=== PATIENT | female | born 1980 | race African-American/Black ===

== ENCOUNTER 2016-04-26 04:55 | Observation (INO) | payer MEDICAID, OTHER ==
[~2016-04-26] VITALS: Ht 162.6 cm; Wt 66.0 kg
[~2016-04-26 04:55] MED LIST: CYCL-36 PO; [UNRECOGNIZED DRUG - CODE] PO
[2016-04-26 04:58] VITALS: BP 151/95; PULSE 122; RESP 18; TEMP 98.7; O2SAT 100
--- NOTE | 2016-04-26 05:22 | PD ---
HPI Chief Complaint: Pain: Acute or Chronic Time Seen by Provider: 05:10 Travel History International Travel<30 days: No Contact w/Intl Traveler<30days: No Traveled to known affect area: No History of Present Illness HPI This is a 35-year-old female who reports a history of endometriosis. She presents for evaluation of left ankle pain. Symptoms started several hours prior to arrival. She describes it as a throbbing pain on the medial and lateral aspect of the left ankle which is constant but worse with movement. She does not recall any specific injury. She denies any fevers, chills, IV drug abuse. She denies any left calf or thigh pain. She denies any left foot pain. Denies any history of gouty arthritis, rheumatoid arthritis. She denies any pelvic pain, vaginal discharge, history of chlamydia or gonorrhea. She has not used any medication for symptom relief. She has no other complaints at this time. PFSH Past Medical History Anemia: Yes Anxiety: Yes Diminished Hearing: No Reproductive: Yes (ENDOMETRIOSIS) Migraines: Yes : 2 Ovarian Cysts: Yes (PELVIC LAPOROSCOPY AND D/C) Tubal Ligation: Yes Past Surgical History Section: Yes (X 2) Gynecologic Surgery: Yes (D AND C , LAPAOSCOPY X 2 C SECTION ) Other Surgery: Yes Social History Alcohol Use: No Tobacco Use: Yes (1/2 PPD) Substance Use: No Allergies-Medications (Allergen,Severity, Reaction): Coded Allergies: Compazine (Verified Allergy, Severe, SOB, 04/26/16) Darvocet-N 100 (Verified Allergy, Severe, HIVES, SWELLING, 04/26/16) Flagyl (Verified Allergy, Severe, Hives, 04/26/16) Imitrex (Verified Allergy, Severe, HIVES, SWELLING, 04/26/16) Levaquin (Verified Allergy, Severe, HIVES, SWELLING, 04/26/16) Macrobid (Verified Allergy, Severe, SOB, HIVES, 04/26/16) Morphine (Verified Allergy, Severe, HIVES,SOB,SWELLING, 04/26/16) Sulfa (Verified Allergy, Severe, HIVE, SWELLING, 04/26/16) Toradol (Verified Allergy, Severe, HIVES, SWELLING, 04/26/16) Tramadol (Verified Allergy, Severe, HIVES, SWELLING, 04/26/16) Reported Meds & Prescriptions Reported Meds & Active Scripts Active Reported Flexeril (Cyclobenzaprine HCl) 10 Mg Tab 10 Mg PO TID Xanax (Alprazolam) 2 Mg Tab 2 Mg PO Q6HR PRN Review of Systems Except as stated in HPI: all other systems reviewed are Neg Physical Exam Narrative GENERAL: This is a well-developed well-nourished female who appears to be in a significant amount of pain. SKIN: Warm and dry. HEAD: Atraumatic. Normocephalic. EYES: Pupils equal and round. No scleral icterus. No injection or drainage. ENT: No nasal bleeding or discharge. Mucous membranes pink and moist. NECK: Trachea midline. No JVD. CARDIOVASCULAR: Regular rate and rhythm. No murmur appreciated. RESPIRATORY: No accessory muscle use. Clear to auscultation. Breath sounds equal bilaterally. GASTROINTESTINAL: Abdomen soft, non-tender, nondistended. Hepatic and splenic margins not palpable. MUSCULOSKELETAL: No obvious deformities. There is non-focal mild soft tissue swelling on the medial aspect and lateral aspect of the left ankle. The left ankle joint is not warm or erythematous. There are no puncture wounds. There is no induration or fluctuance of the skin. There is generalized tenderness to palpation to the medial and lateral aspect of the left ankle. There is pain with passive and active range of motion of the left ankle. The Achilles tendon is intact. There is no lower extremity pitting edema. There is no tenderness to palpation to the left foot. 2+ dorsalis pedis and posterior tibial pulses. NEUROLOGICAL: Awake and alert. No obvious cranial nerve deficits. Motor grossly within normal limits. Normal speech. Data Data Last Documented VS Vital Signs Date Time Temp Pulse Resp B/P Pulse Ox O2 Delivery O2 Flow Rate FiO2 04/26/16 04:58 98.7 122 18 151/95 100 Room Air Orders Ankle, Complete ([id number]) (04/26/16 ) Acetaminophen (Tylenol) (04/26/16 05:30) Complete Blood Count With Diff (04/26/16 05:45) Basic Metabolic Panel (Bmp) (04/26/16 05:45) Act Partial Throm Time (Ptt) (04/26/16 05:45) Prothrombin Time / Inr (Pt) (04/26/16 05:45) C-Reactive Protein (Crp) (04/26/16 05:45) Westergren Sedimentation Rate (04/26/16 05:45) Lactic Acid (04/26/16 05:45) Hydromorphone Pf Inj (Dilaudid Pf Inj) (04/26/16 05:45) Sodium Chlor 0.9% 1000 Ml Inj (Ns 1000 M (04/26/16 05:47) Ct Ankle W Iv Contrast (04/26/16 ) Iohexol 350 Inj (Omnipaque 350 Inj) (04/26/16 06:25) Blood Culture (04/26/16 06:52) Drug Screen, Random Urine (04/26/16 06:52) Ed Urine Pregnancytest Poc (04/26/16 06:52) Hydromorphone Pf Inj (Dilaudid Pf Inj) (04/26/16 07:00) Admit Order (Ed Use Only) (04/26/16 07:23) Labs Laboratory Tests Test 04/26/16 04/26/16 06:00 07:25 White Blood Count 10.2 TH/MM3 Red Blood Count 4.79 MIL/MM3 Hemoglobin 13.6 GM/DL Hematocrit 40.0 % Mean Corpuscular Volume 83.6 FL Mean Corpuscular Hemoglobin 28.4 PG Mean Corpuscular Hemoglobin 33.9 % Concent Red Cell Distribution Width 15.8 % Platelet Count 384 TH/MM3 Mean Platelet Volume 7.3 FL Neutrophils (%) (Auto) 52.3 % Lymphocytes (%) (Auto) 36.4 % Monocytes (%) (Auto) 7.3 % Eosinophils (%) (Auto) 3.6 % Basophils (%) (Auto) 0.4 % Neutrophils # (Auto) 5.3 TH/MM3 Lymphocytes # (Auto) 3.7 TH/MM3 Monocytes # (Auto) 0.7 TH/MM3 Eosinophils # (Auto) 0.4 TH/MM3 Basophils # (Auto) 0.0 TH/MM3 CBC Comment DIFF FINAL Differential Comment Erythrocyte Sedimentation Rate 38 mm/hr Prothrombin Time 11.1 SEC Prothromb Time International 1.0 RATIO Ratio Activated Partial 34.5 SEC Thromboplast Time Sodium Level 135 MEQ/L Potassium Level 3.4 MEQ/L Chloride Level 101 MEQ/L Carbon Dioxide Level 25.4 MEQ/L Anion Gap 9 MEQ/L Blood Urea Nitrogen 9 MG/DL Creatinine 0.61 MG/DL Estimat Glomerular Filtration 137 ML/MIN Rate Random Glucose 91 MG/DL Lactic Acid Level 1.4 mmol/L Calcium Level 9.3 MG/DL C-Reactive Protein 8.09 MG/DL Urine Opiates Screen NEG Urine Barbiturates Screen NEG Urine Amphetamines Screen NEG Urine Benzodiazepines Screen NEG Urine Cocaine Screen POS Urine Cannabinoids Screen NEG MDM Medical Decision Making Medical Screen Exam Complete: Yes Emergency Medical Condition: Yes Medical Record Reviewed: Yes Interpretation(s) CT ankle with contrast CONCLUSION: Focal localized subcutaneous soft tissue swelling about the medial aspect of the ankle. No drainable fluid collections are seen. CBC unremarkable CRP 8.09 Potassium 3.4 Lactic acid 1.4 Differential Diagnosis Inflammatory arthritis, gouty arthritis, septic arthritis, gonococcal septic arthritis, sprain, fracture, DVT, cellulitis Narrative Course 35-year-old female presents with several hours of pain to the medial and lateral left ankle. On examination there is nonspecific soft tissue swelling around the medial and lateral aspect left ankle, pain with active and passive range of motion of the left ankle. There is unclear etiology for this patient' s pain as she does not recall any specific mechanism of injury. She is tachycardic. Plan is for basic lab work, x-ray. The patient was given Dilaudid and Tylenol for pain control. The patient was examined with Dr. Freeman who agrees with plan of care and recommends a CT of the ankle joint with contrast as well. 0655: The patient's lab work and imaging studies have been reviewed. Her lab results for a CRP of 8.09. Her CT the ankle reveals focal localized subcutaneous soft tissue swelling about the medial aspect of the left ankle, no joint effusion, no bony distraction. Her white count is normal. Her lactic acid is normal. Upon reexamination the patient continues to have severe intractable left ankle pain. Therefore the patient will be admitted for intractable ankle pain and further workup. Diagnosis Primary Impression: Left ankle pain Qualified Code: M25.572 - Acute left ankle pain Admitting Information Admitting Physician Requests: Isaiah Musa Apr 26, 2016 05:22
[2016-04-26] MEDS ORDERED: ACETAMINOPHEN 500 MG CPLT PO ONE (05:30)
[2016-04-26] MEDS ORDERED: HYDROmorphone HCL PF 1 MG/ML VIAL IV PUSH ONE ×2 (05:45→07:00)
[2016-04-26] MEDS ORDERED: SODIUM CHLOR 0.9% 1000 ML INJ 1,000 ML IV SCH (05:47)
--- NOTE | 2016-04-26 05:52 | RADRPT ---
EXAM DATE/TIME: 04/26/2016 05:34 [facility] COMPARISON: ANKLE LEFT COMPLETE ([id number]), December 13, 2005, 19:38. INDICATIONS : Non traumatic left ankle pain. MEDICAL HISTORY : None. SURGICAL HISTORY : None. ENCOUNTER: Initial ACUITY: 1 day PAIN SCORE: 10/10 LOCATION: Left ankle FINDINGS: There is mild soft tissue swelling about the medial aspect of the ankle. No fracture seen. There is minimal widening of the lateral ankle mortise, but configuration is unchanged from prior examination in 2005. No radiopaque foreign body is seen. CONCLUSION: Mild medial soft tissue swelling. The osseous structures are grossly intact. Jorge Mckeon MD on April 26, 2016 at 5:49 Board Certified Radiologist. This report was verified electronically.
[2016-04-26 06:22] LABS: APTT (PATIENT) 34.5 SEC (24.3-30.1); PROTHROMBIN TIME - PATIENT 11.1 SEC (9.8-11.6)
[2016-04-26] MEDS ORDERED: IOHEXOL 350 MG/ML 10 ML VIAL (for RAD DIAG) IV ONE (06:25)
[2016-04-26 06:33] LABS: AUTOMATED NEUTROPHIL # 5.3 TH/MM3 (1.8-7.7); BASOPHIL % 0.4 % (0.0-2.0); EOSINOPHIL # 0.4 TH/MM3 (0-0.4); EOSINOPHIL % 3.6 % (0.0-4.0); HEMO FLAGS DIFF FINAL; LYMPH % 36.4 % (9.0-44.0); LYMPHOCYTE # 3.7 TH/MM3 (1.0-4.8); MEAN CELL VOLUME 83.6 FL (80.0-100.0); MEAN CORPUSCULAR HEMOGLOBIN 28.4 PG (27.0-34.0); MEAN CORPUSCULAR HGB CONC 33.9 % (32.0-36.0); MONO % 7.3 % (0.0-8.0); NEUT % 52.3 % (16.0-70.0); PLATELET COUNT 384 TH/MM3 (150-450); RED BLOOD COUNT 4.79 MIL/MM3 (4.00-5.30); RED CELL DISTRIBUTION WIDTH 15.8 % (11.6-17.2); WHITE BLOOD COUNT 10.2 TH/MM3 (4.0-11.0)
--- NOTE | 2016-04-26 06:38 | RADRPT ---
EXAM DATE/TIME: 04/26/2016 06:21 [facility] COMPARISON: No previous studies available for comparison. INDICATIONS : Left ankle pain; possible abscess. IV CONTRAST: 70 cc Omnipaque 350 (iohexol) IV RADIATION DOSE: 6.01 CTDIvol (mGy) MEDICAL HISTORY : None SURGICAL HISTORY : Tubal ligation. section. ENCOUNTER: Initial ACUITY: 2 days PAIN SCALE: 6/10 LOCATION: Left ankle TECHNIQUE: Volumetric scanning of the ankle was performed. Using automated exposure control and adjustment of t he mA and/or kV according to patient size, radiation dose was kept as low as reasonably achievable to obtain optimal diagnostic quality images. FINDINGS: There is induration and swelling of the subcutaneous tissues about the medial aspect of the ankle, me asuring up to 10 mm in thickness. No drainable fluid collections seen. The osseous structures are g rossly intact without evidence of fracture one. CONCLUSION: Focal localized subcutaneous soft tissue swelling about the medial aspect of the ankle. No drainable fluid collections are seen. Jorge Mckeon MD on April 26, 2016 at 6:34 Board Certified Radiologist. This report was verified electronically.
[2016-04-26 06:43] LABS: BICARBONATE 25.4 MEQ/L (21.0-32.0); POTASSIUM 3.4 MEQ/L (3.5-5.1)
[2016-04-26] MEDS ORDERED: XANA2TAB2 PO (07:00)
[2016-04-26] MEDS ORDERED: CYCL1TAB29 PO (07:00)
[2016-04-26] MEDS ORDERED: SODIUM CHLORIDE 0.9% FLUSH 5 ML FLUSH FLUSH PRN (07:45)
[2016-04-26] MEDS ORDERED: ACETAMINOPHEN 325 MG TAB PO PRN ×2 (07:45)
[2016-04-26] MEDS ORDERED: ONDANSETRON HCL 4 MG/2 ML VIAL IVP PRN (07:45)
[2016-04-26] MEDS ORDERED: ACETAMINOPHEN/HYDROcodone 325 MG/5 MG TAB PO PRN (07:45)
[2016-04-26] MEDS ORDERED: NALOXONE HCL 0.4 MG/ML AMP IV PRN (07:45)
[2016-04-26] MEDS ORDERED: TEMAZEPAM 15 MG CAP PO PRN (07:45)
[2016-04-26] MEDS ORDERED: SENNOSIDES 8.6 MG TAB PO PRN (07:45)
[2016-04-26 07:53] LABS: AMPHETAMINE, URINE NEG (NEG); BARBITURATES, URINE NEG (NEG); COCAINE, URINE POS (NEG)
[2016-04-26 08:47] VITALS: BP 124/78; PULSE 78; RESP 16; O2SAT 98
[2016-04-26] MEDS: SODIUM CHLORIDE 0.9% FLUSH 5 ML FLUSH FLUSH SCH ×2 (08:54→20:13)
[2016-04-26] MEDS: ALPRAZolam 1 MG TAB PO PRN ×2 (10:55→18:38)
[2016-04-26] MEDS ORDERED: GADODIAMIDE PF 287 MG/ML 10 ML VIAL (for RAD MRI) IV ONE (11:14)
--- NOTE | 2016-04-26 11:51 | RADRPT ---
EXAM DATE/TIME: 04/26/2016 10:57 [facility] COMPARISON: CT ANKLE LEFT W CONTRAST, April 26, 2016, 6:21. ANKLE LEFT COMPLETE ([id number]), April 26, 2016, 5 :34. INDICATIONS : Edema. CONTRAST: 10 cc Omniscan (gadodiamide) IV MEDICAL HISTORY : None. SURGICAL HISTORY : section. ENCOUNTER: Initial ACUITY: 1 day PAIN SCORE: 6/10 LOCATION: Left ankle TECHNIQUE: Multiplanar, multisequence MRI examination was performed without contrast and after the intravenous a dministration of gadolinium. FINDINGS: There is subcutaneous edema along the medial aspect of the ankle. The adjacent tendons including the tibialis posterior, flexor digitorum, and flexor pollicis tendons have fluid around their sheaths as they pass along the medial ankle. In the plantar aspect of the foot there is a more focal fluid like cystic collection measuring 2.1 x 0.9 cm surrounding the flexor digitorum tendon. This demonstrates m ild enhancement of the rim of the fluid collection. Bone marrow signal is within normal limits. The p eroneal tendons demonstrate no abnormality. Distal Achilles tendon is not thickened. There is joint e ffusion at the tibiotalar joint. CONCLUSION: There is edema along the medial aspect of the ankle with fluid surrounding the medial ankle tendon sh eaths suggesting a tenosynovitis. There is a more focal fluid collection surrounding the flexor digit orum tendon in the hindfoot along the plantar aspect of the foot. There is peripheral enhancement of this fluid collection. Therefore, I cannot exclude infection at this location. Christiano Lopez MD on April 26, 2016 at 11:44 Board Certified Radiologist. This report was verified electronically.
[2016-04-26 12:45] VITALS: BP 117/68; PULSE 78; RESP 16; O2SAT 98
--- NOTE | 2016-04-26 12:47 | HHI.HP ---
[facility] Casey Urbano Admission Diagnosis INTRACTABLE ANKLE PAIN/EDEMA Diagnoses: (1) Left ankle pain (2) Tenosynovitis of ankle Chief Complaint: Left ankle pain Travel History International Travel<30 Days: No Contact w/Intl Traveler <30 Da: No Traveled to Known Affected Are: No History of Present Illness 35-year-old female with a history of anxiety/depression presented to the ED for evaluation for worsening, throbbing left ankle pain 2 days worse with activity and mostly located to the medial and lateral aspects of the ankle. Patient denies any trauma or any type of insect bite. The pain is rated 10 out of 10 in intensity. She has no febrile episode and patient denies any IV drug use. Initial x-ray of ankle with finding of Mild medial soft tissue swelling. The osseous structures are grossly intact. follow-up CT lower extremity with finding of Focal localized subcutaneous soft tissue swelling about the medial aspect of the ankle. No drainable fluid collections are seen Review of Systems Other Other 12 systems reviewed and are negative except for the ones mentioned in history of present illness Past Family Social History Past Medical History Anemia: Yes Anxiety: Yes Reproductive: Yes (ENDOMETRIOSIS) Migraines: Yes Past Surgical History Section: Yes (X 2) Gynecologic Surgery: Yes (D AND C , LAPAOSCOPY X 2 C SECTION ) Other Surgery: Yes Allergies: Coded Allergies: Compazine (Verified Allergy, Severe, SOB, 04/26/16) Darvocet-N 100 (Verified Allergy, Severe, HIVES, SWELLING, 04/26/16) Flagyl (Verified Allergy, Severe, Hives, 04/26/16) Imitrex (Verified Allergy, Severe, HIVES, SWELLING, 04/26/16) Levaquin (Verified Allergy, Severe, HIVES, SWELLING, 04/26/16) Macrobid (Verified Allergy, Severe, SOB, HIVES, 04/26/16) Morphine (Verified Allergy, Severe, HIVES,SOB,SWELLING, 04/26/16) Sulfa (Verified Allergy, Severe, HIVE, SWELLING, 04/26/16) Toradol (Verified Allergy, Severe, HIVES, SWELLING, 04/26/16) Tramadol (Verified Allergy, Severe, HIVES, SWELLING, 04/26/16) Family History Mother has hypertension Social History Alcohol Use: No Tobacco Use: Yes (04/07 PPD) Substance Use: No Physical Exam Vital Signs Vital Signs Date Time Temp Pulse Resp B/P Pulse Ox O2 Delivery O2 Flow Rate FiO2 04/26/16 08:47 78 16 124/78 98 Room Air 04/26/16 04:58 98.7 122 18 151/95 100 Room Air Physical Exam GENERAL: This is a well-nourished, well-developed patient, in no apparent distress. SKIN: No rashes, ecchymoses or lesions. Cool and dry. HEAD: Atraumatic. Normocephalic. No temporal or scalp tenderness. EYES: Pupils equal round and reactive. Extraocular motions intact. No scleral icterus. No injection or drainage. ENT: Nose without bleeding, purulent drainage or septal hematoma. Throat without erythema, tonsillar hypertrophy or exudate. Uvula midline. Airway patent. NECK: Trachea midline. No JVD or lymphadenopathy. Supple, nontender, no meningeal signs. CARDIOVASCULAR: Regular rate and rhythm without murmurs, gallops, or rubs. RESPIRATORY: Clear to auscultation. Breath sounds equal bilaterally. No wheezes , rales, or rhonchi. GASTROINTESTINAL: Abdomen soft, non-tender, nondistended. No hepato-splenomegaly , or palpable masses. No guarding. MUSCULOSKELETAL: Extremities without clubbing, cyanosis, or edema. No joint tenderness, effusion, or edema noted. No calf tenderness. Negative Homans sign bilaterally. NEUROLOGICAL: Awake and alert. Cranial nerves II through XII intact. Motor and sensory grossly within normal limits. Five out of 5 muscle strength in all muscle groups. Normal speech. Laboratory Laboratory Tests Test 04/26/16 04/26/16 06:00 07:25 White Blood Count 10.2 Red Blood Count 4.79 Hemoglobin 13.6 Hematocrit 40.0 Mean Corpuscular Volume 83.6 Mean Corpuscular Hemoglobin 28.4 Mean Corpuscular Hemoglobin 33.9 Concent Red Cell Distribution Width 15.8 Platelet Count 384 Mean Platelet Volume 7.3 Neutrophils (%) (Auto) 52.3 Lymphocytes (%) (Auto) 36.4 Monocytes (%) (Auto) 7.3 Eosinophils (%) (Auto) 3.6 Basophils (%) (Auto) 0.4 Neutrophils # (Auto) 5.3 Lymphocytes # (Auto) 3.7 Monocytes # (Auto) 0.7 Eosinophils # (Auto) 0.4 Basophils # (Auto) 0.0 CBC Comment DIFF FINAL Differential Comment Erythrocyte Sedimentation Rate 38 Prothrombin Time 11.1 Prothromb Time International 1.0 Ratio Activated Partial 34.5 Thromboplast Time Sodium Level 135 Potassium Level 3.4 Chloride Level 101 Carbon Dioxide Level 25.4 Anion Gap 9 Blood Urea Nitrogen 9 Creatinine 0.61 Estimat Glomerular Filtration 137 Rate Random Glucose 91 Lactic Acid Level 1.4 Calcium Level 9.3 C-Reactive Protein 8.09 Urine Opiates Screen NEG Urine Barbiturates Screen NEG Urine Amphetamines Screen NEG Urine Benzodiazepines Screen NEG Urine Cocaine Screen POS Urine Cannabinoids Screen NEG Date/Time Procedure Status Source Growth 04/26/16 07:05 Aerobic Blood Culture Received Blood Peripheral Pending 04/26/16 07:05 Anaerobic Blood Culture Received Blood Peripheral Pending Result Diagram: 04/26/16 0600 04/26/16 0600 Imaging Last Impressions Lower Extremity CT 04/26/16 0000 Signed Impressions: Service Date/Time: Tuesday, April 26, 2016 06:21 - CONCLUSION: Focal localized subcutaneous soft tissue swelling about the medial aspect of the ankle. No drainable fluid collections are seen. Jorge Mckeon MD Ankle X-Ray 04/26/16 0000 Signed Impressions: Service Date/Time: Tuesday, April 26, 2016 05:34 - CONCLUSION: Mild medial soft tissue swelling. The osseous structures are grossly intact. Jorge Mckeon MD Ankle MRI 04/26/16 0000 Signed Impressions: Service Date/Time: Tuesday, April 26, 2016 10:57 - CONCLUSION: There is edema along the medial aspect of the ankle with fluid surrounding the medial ankle tendon sheaths suggesting a tenosynovitis. There is a more focal fluid collection surrounding the flexor digitorum tendon in the hindfoot along the plantar aspect of the foot. There is peripheral enhancement of this fluid collection. Therefore, I cannot exclude infection at this location. Christiano Lopez MD Assessment and Plan Problem List: (1) Tenosynovitis of ankle ICD Code: M65.9 Status: Acute Assessment and Plan 35-year-old female with Tendosynovitis of left ankle: Initial x-ray of ankle with finding of Mild medial soft tissue swelling. The osseous structures are grossly intact. follow- up CT lower extremity with finding of Focal localized subcutaneous soft tissue swelling about the medial aspect of the ankle. However MRI ankle noted and reviewed by me with finding of edema along the medial aspect of the ankle with fluid surrounding the medial ankle tendon sheaths suggesting a tenosynovitis. Elevated both CRP and ESR. Therefore will keep patient nothing by mouth, place consultation to orthopedic surgery. Start empiric antibiotics including vancomycin and Rocephin. Pain medications/analgesic/anti-emetics when necessary Code Status Full code Discussed Condition With Patient, EDC physician Problem Qualifiers (1) Left ankle pain: Qualified Code: M25.572 - Acute left ankle pain Nito Montilla MD Apr 26, 2016 12:47
[2016-04-26] MEDS ORDERED: Vancomycin Consult Pharmacy 1 EA OTHER SCH (13:00)
[2016-04-26] MEDS ORDERED: cefTRIAXone INJ 1,000 MG in SODIUM CHLORIDE 0.9% INJ 100 ML IV SCH (14:00)
[2016-04-26] MEDS ORDERED: VANCOMYCIN INJ 1,000 MG in SODIUM CHLOR 0.9% 250 ML INJ 250 ML IV SCH (15:00)
[2016-04-26] MEDS: ACETAMINOPHEN/HYDROcodone 325 MG/7.5 MG TAB PO PRN (15:30)
[2016-04-26 16:00] VITALS: BP 138/99; PULSE 87; RESP 20; TEMP 96.6; O2SAT 100
[2016-04-26 19:31] VITALS: BP 127/90; PULSE 100; RESP 20; TEMP 97.6; O2SAT 100
[2016-04-27 00:01] VITALS: BP 133/94; PULSE 109; RESP 20; TEMP 97.5; O2SAT 99
[2016-04-27] MEDS: ACETAMINOPHEN/HYDROcodone 325 MG/7.5 MG TAB PO PRN ×2 (00:13→07:49)
[2016-04-27] MEDS ORDERED: VANCOMYCIN 1,000 MG/NS 250 ML IV SCH ×2 (03:00)
[2016-04-27 03:53] VITALS: BP 130/88; PULSE 100; RESP 20; TEMP 98.6; O2SAT 100
[2016-04-27] MEDS: SODIUM CHLORIDE 0.9% FLUSH 5 ML FLUSH FLUSH SCH (07:49)
[2016-04-27 08:01] VITALS: BP 141/96; PULSE 99; RESP 20; TEMP 97.2; O2SAT 95
--- NOTE | 2016-04-27 08:26 | HHI.PR ---
Subjective Remarks Follow-up left ankle swelling 04/27/16-patient seen and examined, initially admitted for what was told as tendosynovitis of left ankle however patient was seen by orthopedic surgery and states this is not a case of tendosynovitis. They recommended patient to be discharged with treatment of anti-inflammatory. Patient still complains of left ankle pain and swelling. Afebrile Objective Vitals Vital Signs Date Time Temp Pulse Resp B/P Pulse Ox O2 Delivery O2 Flow Rate FiO2 04/27/16 08:01 97.2 99 20 141/96 95 04/27/16 03:53 98.6 100 20 130/88 100 04/27/16 01:22 16 04/27/16 00:01 97.5 109 20 133/94 99 04/26/16 19:31 97.6 100 20 127/90 100 04/26/16 16:00 96.6 87 20 138/99 100 04/26/16 12:45 78 16 117/68 98 Room Air 04/26/16 08:47 78 16 124/78 98 Room Air Result Diagram: 04/26/16 0600 04/26/16 0600 Imaging Last Impressions Lower Extremity CT 04/26/16 0000 Signed Impressions: Service Date/Time: Tuesday, April 26, 2016 06:21 - CONCLUSION: Focal localized subcutaneous soft tissue swelling about the medial aspect of the ankle. No drainable fluid collections are seen. Jorge Mckeon MD Ankle X-Ray 04/26/16 0000 Signed Impressions: Service Date/Time: Tuesday, April 26, 2016 05:34 - CONCLUSION: Mild medial soft tissue swelling. The osseous structures are grossly intact. Jorge Mckeon MD Ankle MRI 04/26/16 0000 Signed Impressions: Service Date/Time: Tuesday, April 26, 2016 10:57 - CONCLUSION: There is edema along the medial aspect of the ankle with fluid surrounding the medial ankle tendon sheaths suggesting a tenosynovitis. There is a more focal fluid collection surrounding the flexor digitorum tendon in the hindfoot along the plantar aspect of the foot. There is peripheral enhancement of this fluid collection. Therefore, I cannot exclude infection at this location. Christiano Lopez MD Objective Remarks GENERAL: NAD SKIN: Warm and dry. HEAD: Normocephalic. EYES: No scleral icterus. No injection or drainage. NECK: Supple, trachea midline. No JVD or lymphadenopathy. CARDIOVASCULAR: Regular rate and rhythm without murmurs, gallops, or rubs. RESPIRATORY: Breath sounds equal bilaterally. No accessory muscle use. GASTROINTESTINAL: Abdomen soft, non-tender, nondistended. MUSCULOSKELETAL: No cyanosis, or edema. Left ankle swelling and tender to palpation-neurovascular intact BACK: Nontender without obvious deformity. No CVA tenderness. A/P Problem List: (1) Tenosynovitis of ankle ICD Code: M65.9 Status: Acute Assessment and Plan 35-year-old female with Initially thought to be Tendosynovitis of left ankle: Initial x-ray of ankle with finding of Mild medial soft tissue swelling. follow-up CT lower extremity with finding of Focal localized subcutaneous soft tissue swelling about the medial aspect of the ankle. However MRI ankle with finding of edema along the medial aspect of the ankle with fluid surrounding the medial ankle tendon sheaths suggesting a tenosynovitis. However patient was seen and examined by orthopedic surgery 04/27/16 and the diagnosis of tenosynovitis was ruled out. They recommended treatment with anti-inflammatory. Therefore will discontinue antibiotics. Patient will be discharged home Discharge Planning Discharge patient to home Condition on discharge: Improved Regular Diet as tolerated Ad Zunilda activity Rx written:see EMR Follow-up with primary care physician in 1week Nito Montilla MD Apr 27, 2016 08:26
[2016-04-27 08:38] LABS: AUTOMATED NEUTROPHIL # 3.7 TH/MM3 (1.8-7.7); BASOPHIL % 0.5 % (0.0-2.0); EOSINOPHIL # 0.3 TH/MM3 (0-0.4); EOSINOPHIL % 4.7 % (0.0-4.0); HEMATOCRIT 38.4 % (35.0-46.0); HEMO FLAGS DIFF FINAL; LYMPH % 34.8 % (9.0-44.0); LYMPHOCYTE # 2.5 TH/MM3 (1.0-4.8); MEAN CELL VOLUME 85.8 FL (80.0-100.0); MEAN CORPUSCULAR HGB CONC 33.8 % (32.0-36.0); MONO % 8.3 % (0.0-8.0); NEUT % 51.7 % (16.0-70.0); PLATELET COUNT 325 TH/MM3 (150-450); RED BLOOD COUNT 4.47 MIL/MM3 (4.00-5.30); RED CELL DISTRIBUTION WIDTH 15.9 % (11.6-17.2); WHITE BLOOD COUNT 7.2 TH/MM3 (4.0-11.0)
[2016-04-27 09:17] LABS: ALKALINE PHOSPHATASE 62 U/L (45-117); ALT (GPT) 17 U/L (10-53); ANION GAP 10 MEQ/L (5-15); AST (GOT) 13 U/L (15-37); BICARBONATE 24.1 MEQ/L (21.0-32.0); BLOOD UREA NITROGEN 8 MG/DL (7-18); CHLORIDE 105 MEQ/L (98-107); GLOMERULAR FILTRATION RATE 172 ML/MIN (>89); POTASSIUM 3.7 MEQ/L (3.5-5.1); SODIUM (NA) 139 MEQ/L (136-145); TOTAL BILIRUBIN ADULT 0.2 MG/DL (0.2-1.0)
--- NOTE | 2016-04-27 10:28 | MB ---
cc: MY ESCAMILLA ERIC DATE OF CONSULTATION: 04/27/2016 REASON FOR CONSULTATION: Left ankle pain. CONSULTING PHYSICIAN Dr. Montilla ANIRUDH Agrawal is a 35 year-old female who presented to the emergency room with a two day history of left ankle pain. She denied any falls or injuries. She states that the pain has been progressively getting worse. She denies any fever or chills. She has noticed increasing swelling and pain of the ankle. She is having difficulty standing or ambulating. She has never had any similar types of pain. X-rays were negative for fracture. CT scan revealed some soft tissue swelling. She is currently awake and alert in the emergency department. The pain has improved with rest and is worse with movement. PAST MEDICAL HISTORY: ILLNESSES: 1. Anemia. 2. Anxiety. ALLERGIES: COMPAZINE DARVOCET FLAGYL IMITREX LEVAQUIN MACROBID SULFA MORPHINE TORADOL TRAMADOL PAST SURGICAL HISTORY: 1. x2. 2. D&C. MEDICATIONS: Please see EMR for complete list of medications. This was reviewed. FAMILY HISTORY: Positive for hypertension in her mother. SOCIAL HISTORY: The patient smokes half-pack per day. She denies alcohol or drug use. REVIEW OF SYSTEMS: The patient denies headache, visual changes, neck pain, chest pain, shortness of breath, abdominal pain, nausea, vomiting, recent weight loss, numbness or tingling of the extremities. She complains of left ankle pain. Pain is worse with movement. PHYSICAL EXAMINATION: The patient is a well-developed, well-nourished 35 year-old female in no acute distress. She is awake and alert. She is alert, oriented x3. Vital signs: Temperature 97.2, pulse 99, respirations 20, blood pressure 141/96, O2 sat 95% on room air. Head: The patient is normocephalic. Pupils are equal. Neck: Soft, nontender. Trachea is midline. Abdomen: Soft, nontender, nondistended. Extremities: Examination of bilateral upper extremities reveals no pain with shoulder, elbow or wrist motion. Radial pulses are palpable bilaterally. She has intact sensation in the radial, ulnar and median nerve distributions bilaterally. She has +5 c web developer strength bilaterally. The examination of right leg reveals no pain with hip, knee or ankle motion. Skin is intact. Dorsalis pedis pulses palpable. Sensation intact to right foot. Examination of left leg reveals no pain with hip or knee motion. She has mild swelling diffusely around the ankle. She is tender around the medial and lateral aspects of the ankle. She is tender over the deltoid ligament as well as lateral ankle ligaments. Ankle range of motion is from 10 degrees dorsiflexion, 25 degrees of plantar flexion. There is no warmth. There is no erythema noted. Skin is intact. X-RAYS X-rays of left ankle were reviewed. There is evidence of acute fracture or bone injury. CT scan of left ankle was reviewed. There is some soft tissue swelling present. There is no noted fluid collection. The distal tibia-fibula are intact. MRI of left ankle was reviewed. There is a small amount of fluid around the flexor tendons of the medial ankle. There is no abscess noted. IMPRESSION Three day history of left ankle pain which is progressively worsening. PLAN Treatment options were discussed with the patient. At this point it is unclear the etiology of her pain. It would be unusual to have an isolated infection to the tendons around the ankle without any open wounds or other infections. The patient does have an elevated C-reactive protein and elevated sed rate. At this point there really is no significant drainable fluid collection on MRI. I would recommend conservative treatment. I would recommend anti-inflammatories as well as a continued treatment with antibiotics. If symptoms do not improve or if a drainable collection forms, she may need surgical intervention for irrigation and debridement of her left ankle. All questions were answered. I will continue to follow the patient's progress. A mid-level provider in my office (nurse practitioner or physician plastic surgery assistant) may see this patient on follow-up visits and continue to implement the objectives of this plan including: Starting or adjusting medications, injections , cast application, orthotics, brace application, physical therapy, radiological studies (including x-ray, MRI, CT, ultrasound, bone scan), vascular studies, neurologic studies, specialist consultation, and proceeding with surgical management, as appropriate. MD ANDRÉS Dickson/AGUSTO /9:59 AM /10:15 AM MARIELA
[2016-04-27 11:47] VITALS: BP 130/72; PULSE 108; RESP 18; TEMP 98; O2SAT 99
[2016-04-27] MEDS: ALPRAZolam 1 MG TAB PO PRN (12:47)
[2016-04-27] MEDS ORDERED: NAPR500T PO (12:53)
[2016-04-27] MEDS ORDERED: BACT800T5 PO (12:53)
[2016-04-28] MEDS ORDERED: PHARMACY ORDERED LAB XX ONE (02:45)
== END 2016-04-28 01:19 | disposition home or self-care (01) ==
LOC: NEPB 04:55 → NEDA 07:26 → NEPHCDU 13:02
PROVIDERS: ADMIT Hospitalist; ATTEND Hospitalist
DX: M25.572 Pain in left ankle and joints of left foot (principal); R60.9 Edema, unspecified; M65.872 Other synovitis and tenosynovitis, left ankle and foot; D64.9 Anemia, unspecified; N80.9 Endometriosis, unspecified; F41.8 Other specified anxiety disorders; F17.200 Nicotine dependence, unspecified, uncomplicated; Z82.49 Family history of ischemic heart disease and other diseases of the circulatory system
CPT/HCPCS: 73610; 73701; 73723; 80048; 80053; 80307; 83605; 84703; 85025; 85610; 85652; 85730; 86140; 87040; 96361; 96374; 96376; 99285; A9579; G0378; J0696; J1170; J3370; J7030; J7050; Q9967

== ENCOUNTER 2016-10-30 06:58 | Observation (INO) | payer MEDICAID ==
[~2016-10-30] VITALS: Ht 162.6 cm; Wt 65.0 kg
[2016-10-30] VITALS (8 sets, daily range): BP systolic 115–147; BP diastolic 66–102; PULSE 78–105; RESP 16–20; TEMP 98–98.3; O2SAT 99–100
[~2016-10-30 06:58] MED LIST changes: +BACT800T5 PO; -CYCL-36 PO; +CYCL1TAB29 PO; +NAPR500T PO; +XANA2TAB2 PO; -[UNRECOGNIZED DRUG - CODE] PO
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
[2016-10-30] MEDS ORDERED: SODIUM CHLOR 0.9% 1000 ML INJ 1,000 ML IV ONE (07:30)
[2016-10-30] MEDS ORDERED: SODIUM CHLORIDE 0.9% FLUSH 10 ML FLUSH IVF PRN (07:30)
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
[2016-10-30 08:01] LABS: AUTOMATED NEUTROPHIL # 4.7 TH/MM3 (1.8-7.7); BASOPHIL % 0.5 % (0.0-2.0); EOSINOPHIL # 0.2 TH/MM3 (0-0.4); EOSINOPHIL % 2.5 % (0.0-4.0); HEMATOCRIT 39.4 % (35.0-46.0); HEMO FLAGS DIFF FINAL; LYMPHOCYTE # 2.5 TH/MM3 (1.0-4.8); MEAN CELL VOLUME 85.6 FL (80.0-100.0); MEAN CORPUSCULAR HEMOGLOBIN 29.7 PG (27.0-34.0); MEAN CORPUSCULAR HGB CONC 34.7 % (32.0-36.0); PLATELET COUNT 271 TH/MM3 (150-450); RED BLOOD COUNT 4.61 MIL/MM3 (4.00-5.30); WHITE BLOOD COUNT 7.9 TH/MM3 (4.0-11.0)
[2016-10-30 08:15] LABS: APTT (PATIENT) 29.7 SEC (24.3-30.1); PROTHROMBIN TIME - PATIENT 11.1 SEC (9.8-11.6)
[2016-10-30 08:22] LABS: ALKALINE PHOSPHATASE 75 U/L (45-117); TOTAL BILIRUBIN ADULT 0.3 MG/DL (0.2-1.0)
[2016-10-30 08:29] LABS: ALT (GPT) 15 U/L (10-53); ANION GAP 7 MEQ/L (5-15); AST (GOT) 13 U/L (15-37); BICARBONATE 27.6 MEQ/L (21.0-32.0); BLOOD UREA NITROGEN 8 MG/DL (7-18); CHLORIDE 105 MEQ/L (98-107); GLOMERULAR FILTRATION RATE 120 ML/MIN (>89); POTASSIUM 3.4 MEQ/L (3.5-5.1); SODIUM (NA) 140 MEQ/L (136-145)
[2016-10-30] MEDS ORDERED: SODIUM CHLORIDE 0.9% FLUSH 10 ML FLUSH IV FLUSH PRN (09:45)
[2016-10-30] MEDS ORDERED: MAGNESIUM HYDROXIDE SUSP 30 ML CUP PO PRN (09:45)
[2016-10-30] MEDS ORDERED: LACTULOSE SYRUP 20 GM/30 ML CUP PO PRN (09:45)
[2016-10-30] MEDS ORDERED: ONDANSETRON HCL 4 MG/2 ML VIAL IVP PRN (09:45)
[2016-10-30] MEDS ORDERED: NALOXONE HCL 0.4 MG/ML AMP IV PRN (09:45)
[2016-10-30] MEDS ORDERED: SENNOSIDES 8.6 MG TAB PO PRN (09:45)
[2016-10-30] MEDS ORDERED: BISACODYL 10 MG SUPP RECTAL PRN (09:45)
[2016-10-30] MEDS: SODIUM CHLOR 0.9% 1000 ML INJ 1,000 ML IV SCH ×2 (09:53→19:32)
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
[2016-10-30] MEDS: ACETAMINOPHEN 325 MG TAB PO PRN ×2 (15:41→20:16)
[2016-10-30] MEDS ORDERED: POTASSIUM CHLORIDE 20 MEQ CONTROLLED RELEASE TAB PO ONE (16:30)
[2016-10-30 17:35] LABS: AMPHETAMINE, URINE NEG (NEG); BARBITURATES, URINE NEG (NEG); COCAINE, URINE NEG (NEG)
[2016-10-30] MEDS: SODIUM CHLORIDE 0.9% FLUSH 10 ML FLUSH IV FLUSH SCH (20:26)
[2016-10-30] MEDS ORDERED: DOCUSATE SODIUM 50 MG/SENNA 8.6 MG TAB PO SCH (21:00)
[2016-10-31 00:24] VITALS: BP 104/63; PULSE 95; RESP 20; TEMP 99; O2SAT 97
[2016-10-31 04:02] VITALS: BP 108/65; PULSE 96; RESP 18; TEMP 99.5; O2SAT 97
[2016-10-31] MEDS: ACETAMINOPHEN 325 MG TAB PO PRN ×2 (04:50→14:38)
[2016-10-31] MEDS: SODIUM CHLOR 0.9% 1000 ML INJ 1,000 ML IV SCH (04:52)
[2016-10-31 07:26] LABS: AUTOMATED NEUTROPHIL # 5.4 TH/MM3 (1.8-7.7); BASOPHIL % 0.2 % (0.0-2.0); EOSINOPHIL # 0.3 TH/MM3 (0-0.4); EOSINOPHIL % 3.4 % (0.0-4.0); HEMO FLAGS DIFF FINAL; LYMPH % 19.6 % (9.0-44.0); LYMPHOCYTE # 1.5 TH/MM3 (1.0-4.8); MEAN CELL VOLUME 88.1 FL (80.0-100.0); MEAN CORPUSCULAR HEMOGLOBIN 28.7 PG (27.0-34.0); MEAN CORPUSCULAR HGB CONC 32.5 % (32.0-36.0); MONO % 6.1 % (0.0-8.0); NEUT % 70.7 % (16.0-70.0); PLATELET COUNT 253 TH/MM3 (150-450); RED BLOOD COUNT 4.32 MIL/MM3 (4.00-5.30); RED CELL DISTRIBUTION WIDTH 14.4 % (11.6-17.2); WHITE BLOOD COUNT 7.6 TH/MM3 (4.0-11.0)
[2016-10-31 07:39] LABS: BICARBONATE 24.2 MEQ/L (21.0-32.0)
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
[2016-10-31 09:01] VITALS: BP 110/65; PULSE 95; RESP 18; TEMP 99.3; O2SAT 95
[2016-10-31] MEDS: SODIUM CHLORIDE 0.9% FLUSH 10 ML FLUSH IV FLUSH SCH (09:13)
[2016-10-31 12:13] VITALS: BP 127/86; PULSE 98; RESP 16; TEMP 99.4; O2SAT 96
[2016-10-31] MEDS ORDERED: WALKER WHEELS/F1 MIS (14:37)
== END 2016-10-31 15:42 | disposition home or self-care (01) ==
LOC: NEPC 06:58 → NEDA 09:33 → NEDH 09:51 → NEDA 09:52 → NEPHCDU 13:38
PROVIDERS: ADMIT Hospitalist; ATTEND Hospitalist
DX: S06.0X9A Concussion with loss of consciousness of unspecified duration, initial encounter (principal); S09.90XA Unspecified injury of head, initial encounter; S00.83XA Contusion of other part of head, initial encounter; R79.82 Elevated C-reactive protein (CRP); E87.6 Hypokalemia; I50.9 Heart failure, unspecified; R53.83 Other fatigue; F41.9 Anxiety disorder, unspecified; F17.200 Nicotine dependence, unspecified, uncomplicated; W22.8XXA Striking against or struck by other objects, initial encounter
CPT/HCPCS: 70450; 80048; 80053; 80307; 85025; 85610; 85652; 85730; 86140; 96360; 97161; 99285; G0378; G8987; G8988; J7030

== ENCOUNTER 2017-07-03 23:52 | Observation (INO) | payer SELFPAY ==
[~2017-07-03] VITALS: Ht 162.6 cm; Wt 77.2 kg
[~2017-07-03 23:52] MED LIST changes: -BACT800T5 PO; -CYCL1TAB29 PO; +IOHEXOL 350 MG/ML 10 ML VIAL (for RAD DIAG) IVCONTRAST ONE; -NAPR500T PO; +WALKER WHEELS/F1 MIS; -XANA2TAB2 PO
[2017-07-03 23:54] VITALS: BP 152/88; PULSE 99; RESP 18; TEMP 98.1; O2SAT 100
[2017-07-04] VITALS (7 sets, daily range): BP systolic 82–135; BP diastolic 51–88; PULSE 82–103; RESP 14–18; TEMP 96.2–98.4; O2SAT 97–100
[2017-07-04] MEDS ORDERED: ceFAZolin 2 GM PREMIX 50 ML ONE (00:28)
[2017-07-04] MEDS ORDERED: ceFAZolin 2 GM PREMIX 50 ML IV ONE (00:30)
[2017-07-04] MEDS ORDERED: LIDOCAINE 2%/EPINEPHrine 1:100,000 20ML MDV NERV BLOCK ONE (00:30)
[2017-07-04] MEDS ORDERED: oxyCODONE/ACETAMINOPHEN 5 MG/325 MG TAB PO ONE (00:30)
[2017-07-04] MEDS ORDERED: TETANUS/DIPHTHERIA TOXOID ADULT 0.5 ML VIAL IM ONE (00:30)
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
--- NOTE | 2017-07-04 01:05 | RADRPT ---
EXAM DATE/TIME: 07/04/2017 00:43 [facility] COMPARISON: No previous studies available for comparison. INDICATIONS : Chest pain. Check for pneumothorax. Laceration near left clavicle. MEDICAL HISTORY : None. SURGICAL HISTORY : section. ENCOUNTER: Initial ACUITY: 1 day PAIN SCORE: 0/10 LOCATION: Bilateral chest FINDINGS: A single view of the chest demonstrates the lungs to be symmetrically aerated without evidence of mas s, infiltrate or effusion. The cardiomediastinal contours are unremarkable. Osseous structures are intact. CONCLUSION: Normal examination. Hubert Chow MD on July 04, 2017 at 1:04 Board Certified Radiologist. This report was verified electronically.
[2017-07-04] MEDS ORDERED: MORPHINE SULFATE 4 MG/ML INJ ONE (01:12)
[2017-07-04] MEDS ORDERED: ONDANSETRON HCL 4 MG/2 ML VIAL ONE (01:15)
--- NOTE | 2017-07-04 02:21 | PD ---
Data Data Last Documented VS Vital Signs Date Time Temp Pulse Resp B/P (MAP) Pulse Ox O2 Delivery O2 Flow Rate FiO2 07/03/17 23:54 98.1 99 18 152/88 (109) 100 Orders Orders Cefazolin 2 Gm Premix (Ancef 2 Gm Premix (07/04/17 00:30) Tetanus/Diphtheria Tox Adult (Tetanus/Di (07/04/17 00:30) Oxycodone-Acetamin 5-325 Mg (Percocet (07/04/17 00:30) Lidocai-Epi 2%-1:100,000 Inj (Xylocaine- (07/04/17 00:30) Cefazolin 2 Gm Premix (Ancef 2 Gm Premix (07/04/17 00:28) Chest, Single Ap (07/04/17 ) Morphine Inj (Morphine Inj) (07/04/17 01:12) Ondansetron Inj (Zofran Inj) (07/04/17 01:15) MDM Medical Record Reviewed: Yes Supervised Visit with CESAR: No Narrative Course This patient presents with multiple lacerations. I was asked to repair 2 of them. Please see procedural notes. Procedures Procedure Narrative LACERATION LOCATION: Right arm LENGTH: [4 cm NUMBER OF STITCHES/SANKET: 9 REPAIR: The area of the laceration was prepped with Betadine and sterilely draped. The laceration was infiltrated with 1% lidocaine with epinephrine. The wound was copiously irrigated and explored without evidence of foreign body , tendon injury or neurovascular injury. The wound was closed using 4-0 Prolene simple interrupted]. This was a single layer repair. A sterile dressing was applied. The patient was advised to keep the dressing clean and dry. Patient tolerated the procedure well. LACERATION LOCATION: Right arm LENGTH: 5 cm NUMBER OF STITCHES/SANKET: 10 REPAIR: The area of the laceration was prepped with Betadine and sterilely draped. The laceration was infiltrated with 1% lidocaine with epinephrine. The wound was copiously irrigated and explored without evidence of foreign body , tendon injury or neurovascular injury. The wound was closed using 3-0 Prolene simple interrupted]. This was a single layer repair. A sterile dressing was applied. The patient was advised to keep the dressing clean and dry. Patient tolerated the procedure well. Scripts No Active Prescriptions or Reported Meds Chary,Isaiah P. PA Jul 04, 2017 02:21
[2017-07-04] MEDS ORDERED: MORPHINE SULFATE 2 MG/ML INJ IV PUSH ONE (02:45)
[2017-07-04] MEDS ORDERED: MORPHINE SULFATE 4 MG/ML INJ IV PUSH ONE (03:00)
[2017-07-04] MEDS ORDERED: ONDANSETRON HCL 4 MG/2 ML VIAL IV PUSH ONE (03:00)
[2017-07-04 03:17] LABS: AUTOMATED NEUTROPHIL # 8.2 TH/MM3 (1.8-7.7); BASOPHIL % 0.2 % (0.0-2.0); EOSINOPHIL # 0.1 TH/MM3 (0-0.4); EOSINOPHIL % 1.1 % (0.0-4.0); HEMATOCRIT 36.8 % (35.0-46.0); HEMOGLOBIN 11.9 GM/DL (11.6-15.3); LYMPH % 24.9 % (9.0-44.0); MEAN CELL VOLUME 86.2 FL (80.0-100.0); MEAN CORPUSCULAR HGB CONC 32.4 % (32.0-36.0); MEAN PLATELET VOLUME 7.2 FL (7.0-11.0); MONO % 5.3 % (0.0-8.0); MONOCYTE # 0.6 TH/MM3 (0-0.9); NEUT % 68.5 % (16.0-70.0); PLATELET COUNT 318 TH/MM3 (150-450); RED BLOOD COUNT 4.26 MIL/MM3 (4.00-5.30); RED CELL DISTRIBUTION WIDTH 13.2 % (11.6-17.2); WHITE BLOOD COUNT 11.9 TH/MM3 (4.0-11.0)
[2017-07-04 03:35] LABS: ALBUMIN 3.4 GM/DL (3.4-5.0); ALT (GPT) 13 U/L (10-53); AST (GOT) 14 U/L (15-37); BICARBONATE 27.1 MEQ/L (21.0-32.0); BLOOD UREA NITROGEN 6 MG/DL (7-18); CALCIUM 8.2 MG/DL (8.5-10.1); CHLORIDE 108 MEQ/L (98-107); CREATININE 0.66 MG/DL (0.50-1.00); GLOMERULAR FILTRATION RATE 124 ML/MIN (>89); GLUCOSE,RANDOM 113 MG/DL (74-106); SODIUM (NA) 142 MEQ/L (136-145)
[2017-07-04 03:37] LABS: ALKALINE PHOSPHATASE 57 U/L (45-117); TOTAL BILIRUBIN ADULT 0.2 MG/DL (0.2-1.0); TOTAL PROTEIN 7.1 GM/DL (6.4-8.2)
[2017-07-04] MEDS ORDERED: IOHEXOL 350 MG/ML 10 ML VIAL (for RAD DIAG) IVCONTRAST ONE (04:25)
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
[2017-07-04] MEDS ORDERED: ONDANSETRON HCL 4 MG/2 ML VIAL IVP PRN (06:45)
[2017-07-04] MEDS ORDERED: MAGNESIUM HYDROXIDE SUSP 30 ML CUP PO PRN (06:45)
[2017-07-04] MEDS ORDERED: SENNOSIDES 8.6 MG TAB PO PRN (06:45)
[2017-07-04] MEDS ORDERED: SODIUM CHLORIDE 0.9% FLUSH 10 ML FLUSH IV FLUSH PRN (06:45)
[2017-07-04] MEDS ORDERED: BISACODYL 10 MG SUPP RECTAL PRN (06:45)
[2017-07-04] MEDS ORDERED: LACTULOSE SYRUP 20 GM/30 ML CUP PO PRN (06:45)
[2017-07-04] MEDS ORDERED: RESP: ALBUTEROL 2.5 MG/IPRATROPIUM 0.5 MG NEB (PRN) ONE (07:11)
[2017-07-04] MEDS: HYDROmorphone HCL PF 2 MG/ML VIAL IV PUSH PRN ×3 (08:55→20:28)
[2017-07-04] MEDS: SODIUM CHLOR 0.9% 1000 ML INJ 1,000 ML IV SCH ×3 (09:00→20:26)
[2017-07-04] MEDS: DOCUSATE SODIUM 50 MG/SENNA 8.6 MG TAB PO SCH ×2 (09:01→20:26)
[2017-07-04] MEDS: SODIUM CHLORIDE 0.9% FLUSH 10 ML FLUSH IV FLUSH SCH ×2 (09:01→20:27)
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
[2017-07-05] MEDS: HYDROmorphone HCL PF 2 MG/ML VIAL IV PUSH PRN ×2 (00:21→05:30)
[2017-07-05 00:43] VITALS: BP 106/62; PULSE 86; RESP 18; TEMP 98.2; O2SAT 96
[2017-07-05 03:48] VITALS: BP 124/61; PULSE 91; RESP 17; TEMP 98.3; O2SAT 96
[2017-07-05 05:28] VITALS: BP 111/64; PULSE 124; RESP 17; TEMP 98.1; O2SAT 92
[2017-07-05 08:10] VITALS: BP 82/53; PULSE 93; RESP 20; TEMP 98.2; O2SAT 97
[2017-07-05] MEDS: SODIUM CHLORIDE 0.9% FLUSH 10 ML FLUSH IV FLUSH SCH (08:13)
[2017-07-05] MEDS: DOCUSATE SODIUM 50 MG/SENNA 8.6 MG TAB PO SCH (08:13)
[2017-07-05 08:27] LABS: AUTOMATED NEUTROPHIL # 3.3 TH/MM3 (1.8-7.7); BASOPHIL % 0.2 % (0.0-2.0); EOSINOPHIL # 0.2 TH/MM3 (0-0.4); EOSINOPHIL % 2.4 % (0.0-4.0); HEMATOCRIT 30.5 % (35.0-46.0); LYMPHOCYTE # 2.9 TH/MM3 (1.0-4.8); MEAN CELL VOLUME 86.7 FL (80.0-100.0); MEAN CORPUSCULAR HEMOGLOBIN 28.5 PG (27.0-34.0); MEAN CORPUSCULAR HGB CONC 32.8 % (32.0-36.0); MEAN PLATELET VOLUME 7.4 FL (7.0-11.0); MONO % 8.2 % (0.0-8.0); MONOCYTE # 0.6 TH/MM3 (0-0.9); NEUT % 47.2 % (16.0-70.0); PLATELET COUNT 261 TH/MM3 (150-450); RED BLOOD COUNT 3.51 MIL/MM3 (4.00-5.30); RED CELL DISTRIBUTION WIDTH 13.5 % (11.6-17.2); WHITE BLOOD COUNT 6.9 TH/MM3 (4.0-11.0)
[2017-07-05 09:02] LABS: ALBUMIN 2.7 GM/DL (3.4-5.0); ALKALINE PHOSPHATASE 52 U/L (45-117); ALT (GPT) 9 U/L (10-53); AST (GOT) 12 U/L (15-37); BICARBONATE 27.7 MEQ/L (21.0-32.0); BLOOD UREA NITROGEN 5 MG/DL (7-18); CALCIUM 8.4 MG/DL (8.5-10.1); CHLORIDE 109 MEQ/L (98-107); CREATININE 0.51 MG/DL (0.50-1.00); GLOMERULAR FILTRATION RATE 167 ML/MIN (>89); GLUCOSE,RANDOM 90 MG/DL (74-106); SODIUM (NA) 143 MEQ/L (136-145); TOTAL BILIRUBIN ADULT 0.1 MG/DL (0.2-1.0); TOTAL PROTEIN 5.9 GM/DL (6.4-8.2)
[2017-07-05] MEDS ORDERED: POTASSIUM CHLORIDE 10 MEQ CONTROLLED RELEASE TAB PO ONE ×2 (09:15→13:15)
[2017-07-05] MEDS: SODIUM CHLOR 0.9% 1000 ML INJ 1,000 ML IV SCH (10:54)
[2017-07-05 11:21] VITALS: PULSE 93
[2017-07-05] MEDS ORDERED: NALOXONE HCL 0.4 MG/ML AMP IV PUSH PRN (12:15)
[2017-07-05] MEDS ORDERED: THIAMINE HCL 100 MG TAB PO ONE (12:15)
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
[2017-07-05] MEDS ORDERED: OXYC-392 PO (13:16)
[2017-07-05] MEDS ORDERED: CEPH-460 PO (13:17)
[2017-07-05] MEDS ORDERED: DOCUSATE SODIUM 50 MG/SENNA 8.6 MG TAB PO SCH (21:00)
== END 2017-07-05 16:58 | disposition home or self-care (01) ==
LOC: NEPE 23:52 → NEDA 07-04 07:01 → NEPFCDU 07-04 08:38
PROVIDERS: ADMIT Internal Medicine; ATTEND Internal Medicine
DX: S41.112A Laceration without foreign body of left upper arm, initial encounter (principal); S51.811A Laceration without foreign body of right forearm, initial encounter; S21.119A Laceration without foreign body of unspecified front wall of thorax without penetration into thoracic cavity, initial encounter; S11.81XA Laceration without foreign body of other specified part of neck, initial encounter; D64.9 Anemia, unspecified; F41.9 Anxiety disorder, unspecified; N80.9 Endometriosis, unspecified; F17.210 Nicotine dependence, cigarettes, uncomplicated; X99.8XXA Assault by other sharp object, initial encounter; Z23 Encounter for immunization; G43.909 Migraine, unspecified, not intractable, without status migrainosus; I95.9 Hypotension, unspecified; E87.6 Hypokalemia
CPT/HCPCS: 12006; 70498; 71045; 80053; 83605; 83735; 84703; 85025; 90471; 90714; 96365; 96366; 96375; 99285; G0378; J0690; J1170; J2270; J2405; J7030; Q9967